=== PATIENT | male | born 1965 | race Two or more races ===

== ENCOUNTER 2018-10-03 07:13 | Day surgery (SDC) | payer BC ==
[2018-10-01 11:55] VITALS: BMI 26.9
[2018-10-03] MEDS ORDERED: oxyCODONE HCL 10 MG SUSTAINED ACTING TABLET PO STA (07:58)
[2018-10-03] MEDS ORDERED: KETOROLAC TROMETHAMINE 30 MG/1 ML VIAL ONE (09:03)
[2018-10-03] MEDS ORDERED: ONDANSETRON 4 MG/2 ML VIAL ONE (09:03)
[2018-10-03] MEDS ORDERED: DEXAMETHASONE SOD PHOSPHATE 4 MG/1 ML VIAL ONE (09:03)
[2018-10-03] MEDS ORDERED: SODIUM CHLORIDE 0.9% P/F 10 ML VIAL IJ ONE (09:07)
[2018-10-03] MEDS ORDERED: ceFAZolin SODIUM 1 GM VIAL ONE (09:07)
[2018-10-03] MEDS ORDERED: DEXAMETHASONE SOD PHOSPHATE/PF 10 MG/ML SDV ONE (10:21)
[2018-10-03] MEDS ORDERED: GUM MASTIC/STORAX/MSAL/ALCOHOL 1 DRP DROPSBTL MC ONE (11:13)
[2018-10-03] MEDS ORDERED: LIDOCAINE 1%/EPI 1:100000 (20 ML MULTI DOSE VIAL) ONE (11:13)
[2018-10-03] MEDS ORDERED: THROMBIN (RECOMBINANT) 5,000 UNIT VIAL TP ONE (11:13)
[2018-10-03] MEDS ORDERED: methylPREDNISolone ACET (DEPO) 40 MG/1 ML VIAL ONE (11:13)
--- NOTE | 2018-10-03 11:16 | HP ---
History & Physical Update - History History: No Change - Physical Physical: No Change - Assessment Assessment: No Change - Plan Plan: No Change
[2018-10-03] MEDS ORDERED: MIDAZOLAM HCL 2 MG/2 ML SINGLE DOSE VIAL ONE ×2 (11:27→12:16)
[2018-10-03] MEDS ORDERED: oxyCODONE HCL 5 MG TABLET PO PRN ×2 (13:23)
[2018-10-03] MEDS ORDERED: ONDANSETRON 4 MG/2 ML VIAL IVPUSH PRN (13:23)
--- NOTE | 2018-10-03 13:24 | OP ---
Operative Note - Note: Operative Date: 10/03/18 Pre-Operative Diagnosis: lumbar stenosis, herniated disc L4-5 Surgeon: Jorje Lopez Flatbed Truck Driver: Viri Mendoza Anesthesiologist/DEFLECTOR OPERATOR: Mayco Syed Anesthesia: Spinal Estimated Blood Loss (mls): 20 Fluid Volume Replaced (mls): 600 Operative Report Dictated: Yes
--- NOTE | 2018-10-03 13:26 | SURG ---
Surgery Research Quality Assurance Analyst Note Research Quality Assurance Analyst: Viri Mendoza PA-C Date of Service: 10/03/18 Diagnosis: lumbar stenosis L4-L5 with herniated disc Procedure: laminectomy of L4-L5 with microdisectomy I was present for the entirety of the operative procedure. For further detail, please refer to operative report. Visit type - Case Type Case Type: Scheduled - Emergency Emergency Visit: No - New patient This patient is new to me today: Yes Date on this admission: 10/03/18 - Critical Care Critical Care patient: No
[2018-10-03] MEDS ORDERED: LACTATED RINGERS SOLUTION 1,000 ML IV SCH (13:30)
--- NOTE | 2018-10-03 14:48 | OP ---
DATE OF OPERATION: 10/03/2018 PREOPERATIVE DIAGNOSIS: Spinal stenosis, L4-5. POSTOPERATIVE DIAGNOSIS: Spinal stenosis, L4-5. PROCEDURE PERFORMED: Laminectomy, L4-5. SURGEON: Jorje Lopez MD KEY ENTRY OPERATOR: SOLIS Womack ESTIMATED BLOOD LOSS: 50 mL. IV FLUIDS: Per Anesthesia. ANESTHESIA: Spinal/TLIP. COMPLICATIONS: There were none. DISPOSITION: Patient brought to the PACU in stable condition. INDICATION FOR SURGERY: The patient is a 53-year-old gentleman who has been suffering from pain from his back down his legs. X-rays and MRI were completed, which noted he has spinal stenosis at L4-5. He had gone through an exhaustive course of treatment for this, which included medications, physical therapy as well as injections. Unfortunately, his pain continued to persist despite all this. At this point, risks, benefits, and alternatives were discussed and the patient consented to surgery. OPERATIVE NOTE: Patient was brought to the operating room by the anesthesia staff. After appropriate patient identification was performed, spinal anesthesia was given. A TLIP block was given. The patient was able to position himself prone onto the OR table. Two needles were placed on his back to foster off the L4-5 level. X-rays taken to confirm this was correct. The needle was removed and 10 mL of lidocaine with epinephrine was injected into his back. At this time is back was prepped and draped in a sterile manner. At this point, timeout was completed. An incision was made from the top of L4 down to the bottom of L5. Dissection was carried down to the fascia. Fascia was split open at this time. An appropriate retractor was then placed in. A spinal needle was placed onto the L4 lamina to foster off the L4-5 level. X-rays taken to confirm this was correct. The needle was removed and interspinous ligament at L4-5 was removed. Portions of the L4-L5 spinous processes were removed. The flavum was identified, it was removed. Portions of the lamina were removed. The thecal sac was mobilized medially. A disk herniation was noted, it was removed. By the end of the procedure, the L5 nerve root appeared to be well decompressed. All bleeding was well controlled at this time. Steroid was placed over the nerve root, FloSeal was placed over that. The fascia was closed with a number 1 Vicryl suture. Subcutaneous tissues were closed with 2-0 Vicryl suture. Skin was closed with 3-0 Monocryl suture. Dermabond was applied, Steri-Strips were applied, sterile dressing applied. Patient placed supine on OR bed, brought to the PACU in stable condition. JORJE LOPEZ M.D. CHRISSY/[id number]
[2018-10-03 14:51] VITALS: TEMP 97.6
[2018-10-03 17:25] VITALS: BP 110/65; PULSE 60
[2018-10-03] MEDS ORDERED: oxyCODONE HCL 10 MG SUSTAINED ACTING TABLET PO SCH (22:00)
== END 2018-10-03 16:45 | disposition home or self-care (01) ==
LOC: FASU 07:13
PROVIDERS: ATTEND Orthopaedic Surgery Orthopaedic Surgery of the Spine
PROC: 01NB0ZZ Release Lumbar Nerve, Open Approach (ICD-10-PCS; principal; 2018-10-03 12:17)
DX: M48.061 Spinal stenosis, lumbar region without neurogenic claudication (principal)
CPT/HCPCS: 72100-TC-FY; 94760

== ENCOUNTER 2022-12-10 01:01 | Emergency (ER) | payer BC ==
[2022-12-10 01:15] VITALS: BP 111/64; PULSE 81; RESP 18; TEMP 97.8; BMI 27.8
[2022-12-10] MEDS ORDERED: ONDANSETRON 4 MG/2 ML VIAL IVPUSH ONE (02:22)
[2022-12-10 02:57] LABS: BASO % 0.4 % (0-2.0); EOS % 2.3 % (0-4.5); HEMATOCRIT 36.7 % (35.4-49); HEMOGLOBIN 13.2 GM/dL (11.7-16.9); LYMPH % 11.2 % (8-40); MEAN CELL VOLUME 94.3 fl (80-96); MEAN PLT VOLUME 7.7 fl (7.5-11.1); NEUT % 77.1 % (42.8-82.8); PLATELET COUNT 171 10^3/uL (134-434); RBC 3.89 M/mm3 (4.00-5.60); RDW 13.6 % (11.9-15.9)
[2022-12-10 03:17] LABS: POTASSIUM 3.8 mmol/L (3.5-5.1)
[2022-12-10 03:19] LABS: ALBUMIN 3.8 g/dl (3.4-5.0); CALCIUM 8.1 mg/dL (8.5-10.1)
[2022-12-10 03:20] LABS: BLOOD UREA NITROGEN 8.9 mg/dL (7-18)
[2022-12-10 03:23] LABS: CREATININE 0.9 mg/dL (0.55-1.3)
[2022-12-10 03:25] LABS: BILIRUBIN,TOTAL 1.3 mg/dL (0.2-1); TOT PROT 6.9 g/dl (6.4-8.2)
[2022-12-10 04:23] LABS: URINE APPEARANCE CLEAR; URINE BILIRUBIN NEGATIVE (NEGATIVE); URINE COLOR YELLOW; URINE GLUCOSE (UA) NEGATIVE (NEGATIVE); URINE KETONE NEGATIVE (NEGATIVE); URINE LEUK ESTERASE NEGATIVE (NEGATIVE); URINE NITRITE NEGATIVE (NEGATIVE); URINE PROTEIN TRACE (NEGATIVE)
== END 2022-12-10 04:36 | disposition home or self-care (01) ==
LOC: JER 01:01
DX: R53.1 Weakness (principal); R11.0 Nausea; R32 Unspecified urinary incontinence; R55 Syncope and collapse; Z20.822 Contact with and (suspected) exposure to COVID-19
CPT/HCPCS: 0241U-QW; 36415; 70450-TC; 71045-TC-FY; 80053; 81003; 82962; 84484; 85025; 87086; 93005; 93010; 99285-25